=== PATIENT | female | born 1985 | race American Indian/Alaskan Native ===

== ENCOUNTER 2018-12-26 20:27 | Emergency (ER) | payer OTHER ==
--- NOTE | 2018-12-26 20:49 | Emergency Department Report ---
Blank Doc - Documentation Documentation: This is a 33 y.o. female that presents with rectal pain from hemorrhoids since yesterday. Patient is using preparation H with minimal improvement of symptoms. Reports history of hemorrhoids during . Recent delivery 12/22/2018. Fast track for further evaluation.
== END 2018-12-26 21:00 | disposition left against medical advice (07) ==
LOC: ED 20:27